=== PATIENT | male | born 1965 | race Caucasian/White ===

== ENCOUNTER → 2017-07-19 09:22 | Outpatient (CLI) | payer BC, SELFPAY ==
--- NOTE | 2017-07-19 09:31 | XR_ITS ---
XR chest 2V COMPARISON: PA and lateral chest 09/06/2012 HISTORY: Is a breath TECHNIQUE: PA and lateral chest FINDINGS: The lung scott are well expanded and appear clear of infiltrate. The cardiac silhouette and vascularity are normal. Is a calcified granuloma right perihilar region. There is no pleural fluid. IMPRESSION: Nonacute chest findings
== END ==
PROVIDERS: PCP Family Medicine; Visit Provider Nurse Practitioner Family
DX: Z12.11 Encounter for screening for malignant neoplasm of colon (principal); R06.02 Shortness of breath
CPT/HCPCS: 71046

== ENCOUNTER → 2017-08-07 15:20 | Outpatient (CLI) | payer BC, SELFPAY | PROVIDERS: PCP Nurse Practitioner Family; Visit Provider Nurse Practitioner Family | DX: G47.10 Hypersomnia, unspecified (principal); R06.83 Snoring | CPT/HCPCS: 95806 ==

== ENCOUNTER → 2017-11-30 15:21 | Outpatient (CLI) | payer BC, SELFPAY ==
--- NOTE | 2017-11-30 15:27 | CT_ITS ---
CT sinus wo con CLINICAL INDICATION: ITS.REASON: NASAL CONGESTION,SEROUS OTITIS OF BOTH EARS ORDERING PHYSICIAN: Malinda Rojo PATIENT AGE: 52 years COMPARISON: None TECHNIQUE:Axial images obtained with sagittal and coronal reformats. All CT scans at the facility use one or more dose reduction, viz: automated exposure control, ma/kV adjustment per patient size (including targeted exams where dose is matched to indication, i.e. head), or iterative reconstruction technique. FINDINGS: There is mild mucosal thickening of the frontal sinuses. Mild to moderate mucosal thickening involves the ethmoid sinuses bilaterally. Minimal mucosal thickening involves the maxillary sinuses. No sinus air-fluid level. There is mild leftward nasal septal deviation. There is narrowing of the right OMC. The left OMC appears occluded from mucous or edema. No obvious sinus or nasal mass. No mastoid effusion. Middle ear canals are well aerated. No evidence of mastoiditis. Scattered small nodes are present in the neck. The orbits have an unremarkable appearance as do the temporomandibular joints IMPRESSION: 1. Mild paranasal sinus inflammatory changes with mild leftward nasal septal deviation. 2. No sinus air-fluid level or other significant anomalies
== END ==
PROVIDERS: Family Provider Family Medicine; PCP Nurse Practitioner Family; Visit Provider Nurse Practitioner Family
DX: J34.89 Other specified disorders of nose and nasal sinuses (principal); H65.06 Acute serous otitis media, recurrent, bilateral
CPT/HCPCS: 70486

== ENCOUNTER → 2018-09-05 13:27 | Outpatient (CLI) | payer BC, SELFPAY ==
--- NOTE | 2018-09-05 13:33 | XR_ITS ---
XR foot LT min 3V HISTORY: ITS.REASON: BILAT FOOT PAIN ORDERING PHYSICIAN: Malinda Rojo APRN PATIENT AGE: 53 years COMPARISON: None FINDINGS: No fracture or dislocation. No lytic or blastic change. There is normal mineralization.. The joint spaces are well-preserved. No significant degenerative/arthritic changes. No erosive changes evident. Mild hammertoe deformity of the toes. There is some mild hypertrophic change of the anterior distal tibia IMPRESSION: Mild hammertoe deformity otherwise negative
--- NOTE | 2018-09-05 13:33 | XR_ITS ---
XR foot RT min 3V HISTORY: ITS.REASON: BILAT FOOT PAIN ORDERING PHYSICIAN: Malinda Rojo APRN PATIENT AGE: 53 years COMPARISON: None FINDINGS: No fracture or dislocation. No lytic or blastic change or significant degenerative change. Mild hammertoe deformity involves all toes. IMPRESSION: Hammertoe deformity of the toes otherwise negative
== END ==
PROVIDERS: PCP Family Medicine; Visit Provider Nurse Practitioner Family
DX: M79.672 Pain in left foot (principal); M79.671 Pain in right foot
CPT/HCPCS: 73630

== ENCOUNTER → 2019-04-07 12:37 | Outpatient (CLI) | payer BC, SELFPAY ==
--- NOTE | 2019-04-07 13:00 | US_ITS ---
PROCEDURE: US THYROID CLINICAL INDICATION: LOW TSH LEVEL COMPARISON: No exams were available for comparison FINDINGS: Right lobe: 1.4 x 5.5 x 2.0 centimeters. Left lobe: 2.1 x 5.4 x 2.1 centimeters. Isthmus: AP diameter 7.9 millimeters. Additional findings: The overall echogenicity of the thyroid gland is homogeneous. There are multiple thyroid nodules, 1 of which at the lower pole left lobe has a peripheral calcification with acoustic shadowing and this measures approximately 6.3 x 6.0 millimeters. There are bilateral hypoechoic spongiform nodules in the left and right thyroid lobe. Largest occurs in the lower pole left thyroid lobe and measures 9.1 x 8.8 millimeters in AP and transverse diameter on the transverse image. IMPRESSION: Multinodular thyroid gland. The small left thyroid lobe nodule contains peripheral calcification and therefore since larger than 0.5 centimeters, tissue sampling could be considered. TR category 5. Multiple hypoechoic spongiform thyroid nodules again more prominent in the left thyroid lobe although transverse image shows the lesion is less than 10 millimeters and this could be followed with repeat ultrasound at 6-12 months. TR category 4. Dictated by: Андрей Saleem 04/07/2019 14:44 Electronically signed by Андрей Saleem in [place] 04/07/2019 14:44
== END ==
PROVIDERS: PCP Family Medicine; Visit Provider Nurse Practitioner Family
DX: R79.89 Other specified abnormal findings of blood chemistry (principal)
CPT/HCPCS: 76536

== ENCOUNTER → 2019-04-23 16:33 | Outpatient (CLI) | payer BC, SELFPAY ==
[2019-04-23 21:17] LABS: Free T4 (Free Thyroxine) 1.12 ng/dl (0.76-1.46); Thyroid Stimulating Hormone 0.43 uIU/ml (0.358-3.740)
[2019-04-25 19:03] LABS: Thyroid Peroxidase Antibodies 9 IU/mL (0-34); Thyroid Stimulating Immunoglob <0.10 IU/L (0.00-0.55)
[2019-04-25 19:04] LABS: Calcium, Ionized 5.3 mg/dL (4.5-5.6)
[2019-04-27 17:56] LABS: Calcitonin 3.1 pg/mL (0.0-8.4)
== END ==
PROVIDERS: Visit Provider Otolaryngology
DX: E04.1 Nontoxic single thyroid nodule (principal)
CPT/HCPCS: 36415; 82308; 82330; 84439; 84443; 84445; 86376

== ENCOUNTER → 2020-10-15 15:04 | Outpatient (CLI) | payer BC, SELFPAY | PROVIDERS: PCP Family Medicine; Visit Provider Nurse Practitioner Family | DX: Z20.822 Contact with and (suspected) exposure to COVID-19 (principal) | CPT/HCPCS: U0003 ==

== ENCOUNTER → 2020-11-10 14:14 | Outpatient (CLI) | payer BC, SELFPAY ==
[2020-11-17 15:12] LABS: Testosterone, Total, LC/MS 202.6 ng/dL (264.0-916.0); Testosterone,Free 4.9 pg/mL (7.2-24.0)
== END ==
PROVIDERS: Visit Provider Urology
DX: N52.9 Male erectile dysfunction, unspecified (principal)
CPT/HCPCS: 36415; 84402; 84403

== ENCOUNTER → 2021-04-14 11:25 | Outpatient (CLI) | payer BC, SELFPAY ==
--- NOTE | 2021-04-15 11:28 | PC.NURSE ---
Patient contacted head of housekeeping for his COVID results. informed patient of positive result and advised to come to the ER if symptoms worsened.
== END ==
PROVIDERS: Visit Provider Nurse Practitioner
DX: U07.1 COVID-19 (principal)
CPT/HCPCS: C9803; U0003; U0005

== ENCOUNTER → 2021-07-15 07:09 | Outpatient (CLI) | payer BC, SELFPAY ==
--- NOTE | 2021-07-15 07:14 | CT_ITS ---
FINAL REPORT CLINICAL HISTORY: H/O NICOTINE DEPENDENCE FINDINGS: Low-Dose Chest CT CTDI vol (mGy): 2.90 DLP (mGy-cm): 115.16 Axial images were obtained from the lung apex to the mid abdomen by computed tomography. Low-dose protocol was utilized. FINDINGS: CHEST: There is no axillary adenopathy. There is no hilar or mediastinal adenopathy. The heart is proper size. There are mild coronary artery calcifications. There is no pericardial or pleural effusion. Limited images of the upper abdomen demonstrate postoperative changes from cholecystectomy. Lung window images demonstrate calcified granulomas in the right upper lobe. There are ground-glass nodules in the left lung apex measuring up to 10 mm. IMPRESSION: Ground-glass nodules in the left lung apex measuring up to 10 mm. Lung RADS category 2. Recommend 12 month follow-up low-dose chest CT. Reviewed, Interpreted and Dictated by Gunnar Mcclellan III, MD Transcribed by Sujey Castro Authenticated by Gunnar Mcclellan III, MD on 07/15/2021 08:49:53 AM [facility]
== END ==
PROVIDERS: PCP Family Medicine; Visit Provider Nurse Practitioner Family
DX: Z87.891 Personal history of nicotine dependence (principal); Z12.2 Encounter for screening for malignant neoplasm of respiratory organs
CPT/HCPCS: 71271

== ENCOUNTER → 2021-07-18 15:07 | Outpatient (CLI) | payer BC, SELFPAY ==
[2021-07-18 15:19] LABS: MANUAL DIFFERENTIAL MANUAL DIFFERENTIAL (MANUAL DIFF)
[2021-07-18 16:11] LABS: Basophils # 0.1 K/mm3 (0-0.2); Basophils % 0.7 % (0.1-2.0); Eosinophils # 0.2 K/mm3 (0.0-0.4); Eosinophils % 1.7 % (0.1-12.0); Hematocrit 47.4 % (42.0-52.0); Hemoglobin 15.5 g/dL (14.1-18.0); Lymphocytes # 2.5 K/mm3 (0.7-4.5); Lymphocytes % 23.9 % (10-50); Mean Corpuscular HGB Conc 32.8 g/dL (31.8-35.4); Mean Corpuscular Hemoglobin 30.1 pg (27.0-31.2); Mean Platelet Volume 8.6 fl (7.4-10.4); Monocytes # 0.7 K/mm3 (0.1-1.0); Neutrophils % 66.6 % (37.0-80.0); Platelet Count 293 K/mm3 (142-424); Red Blood Count 5.15 M/mm3 (4.60-6.20); Red Cell Distribution Width 14.5 % (11.5-17.5); White Blood Count 10.5 K/mm3 (4.8-10.8)
[2021-07-18 16:50] LABS: Alanine Aminotransferase 36 U/L (12-78); Albumin Level 4.5 g/dl (3.5-5.0); Alkaline Phosphatase 79 U/L (38-126); Aspartate Amino Transferase 32 U/L (17-59); Bilirubin,Direct 0.2 mg/dl (0.0-0.4); Bilirubin,Indirect 0.4 mg/dL (0.0-0.9); Bilirubin,Total 0.6 mg/dl (0.2-1.3); Bilirubin,Unconjugated 0.4 mg/dL (0.0-1.1); Total Protein,Serum 6.8 g/dl (6.3-8.2)
[2021-07-18 18:25] LABS: Eosinophils % 2 % (0-3); Lymphocytes % 28 % (10-50); Monocytes % 5 % (2-9); Neutrophils % 65 % (42-76); Platelet Estimate Normal; RBC Morphology Normal; Total Cells Counted 100
[2021-08-01 18:09] LABS: Testosterone, Total, LC/MS 224.9 ng/dL (264.0-916.0); Testosterone,Free 8.8 pg/mL (7.2-24.0)
== END ==
PROVIDERS: PCP Family Medicine; Visit Provider Urology
DX: E29.1 Testicular hypofunction (principal)
CPT/HCPCS: 36415; 80076; 84402; 84403; 85007; 85014; 85018; 85048; 85049; G0399

== ENCOUNTER → 2021-09-29 13:38 | Outpatient (CLI) | payer BC, SELFPAY ==
--- NOTE | 2021-09-29 13:38 | US_ITS ---
FINAL REPORT CLINICAL HISTORY: thyroid nodule COMPARISON: April 07, 2019 FINDINGS: THYROID ULTRASOUND Sonographic images of the thyroid was obtained. The right lobe of the thyroid measures 5.1 x 2.3 x 1.6 cm. There is a nodule measuring 16 x 12 x 10 mm and was 12 x 8 x 8 mm. It is cystic and solid, TI-RADS 2. The left lobe of the thyroid measures 6.1 x 2.3 x 2.2 cm. There is a nodule measuring 20 x 17 x 17 mm and was 18 x 10 x 9 mm. It now appears more cystic, TI-RADS 2. The isthmus measures 8 mm. There is a nodule on the right measuring 8 x 8 x 3 mm and was 9 x 8 x 6 mm. It is solid and hypoechoic, TI-RADS 4. There is a nodule on the left measuring 19 x 14 x 12 and was 9 x 9 x 6. It is largely cystic, TI-RADS 2. IMPRESSION: Nodules as above, some are somewhat larger but now appear more cystic and still favored to be benign. Recommend additional follow-up ultrasound in 6 months. Reviewed, Interpreted and Dictated by Gunnar Mcclellan III, MD Transcribed by Sujey Casrto Authenticated and [facility]
[2021-09-29 15:43] LABS: Free T4 (Free Thyroxine) 0.97 ng/dl (0.78-2.19)
== END ==
PROVIDERS: PCP Family Medicine; Visit Provider Otolaryngology
DX: E04.1 Nontoxic single thyroid nodule (principal)
CPT/HCPCS: 36415; 76536; 84439; 84443

== ENCOUNTER → 2022-03-15 15:45 | Outpatient (CLI) | payer BC, SELFPAY ==
[2022-03-15 17:53] LABS: Coronavirus 19, PCR Not Detected (NotDetected); Influenza A, PCR Not Detected (NotDetected); Influenza B, PCR Not Detected (NotDetected)
== END ==
PROVIDERS: PCP Emergency Medicine; Visit Provider Emergency Medicine
DX: R68.89 Other general symptoms and signs (principal)
CPT/HCPCS: C9803; U0003; U0005

== ENCOUNTER → 2022-04-07 13:25 | Outpatient (CLI) | payer BC, SELFPAY ==
--- NOTE | 2022-04-07 13:25 | US_ITS ---
FINAL REPORT CLINICAL HISTORY: 6 mo f/u nodule COMPARISON: 09/29/2021 FINDINGS: Limited sonographic images of the thyroid were obtained. The right lobe of the thyroid measures 5.3 x 1.5 x 2.1 cm. The left lobe of the thyroid measures 5.6 x 3.3 x 2.5 cm. The isthmus measures 0.55 cm. There is a nodule in the right isthmus which is solid and isoechoic measuring 8 x 8 x 6 mm consistent with TI-RADS category 3. This nodule is stable compared to previous. There is also a nodule in the left isthmus which is solid and hypoechoic measuring 8 x 6 x 5 mm. This nodule has decreased in size, previously measured 19 x 14 x 12 mm. This nodule is consistent with TI-RADS category 4. There is an isoechoic nodule in the right lobe of the thyroid which is a mixture of cystic and solid measuring 15 x 15 x 10 mm. This nodule is stable consistent with TI-RADS category 2. There is also a nodule in the left thyroid lobe which is cystic and solid with macro calcifications measuring 19 x 19 x 19 mm, previously measured 12 x 17 x 17 mm. This is not significantly changed. IMPRESSION: Multiple thyroid nodules are stable with the exception of the nodule in the left isthmus which has decreased in size. Reviewed, Interpreted and Dictated by Gunnar Mcclellan III, MD Transcribed by Meron Walker Authenticated and [facility] [place] [place]
== END ==
PROVIDERS: PCP Emergency Medicine; Visit Provider Otolaryngology
DX: E04.1 Nontoxic single thyroid nodule (principal)
CPT/HCPCS: 76536

== ENCOUNTER → 2022-06-06 12:18 | Outpatient (CLI) | payer BC, SELFPAY ==
[2022-06-06 13:57] LABS: Free T4 (Free Thyroxine) 0.96 ng/dl (0.78-2.19)
== END ==
PROVIDERS: PCP Emergency Medicine; Visit Provider Otolaryngology
DX: E04.1 Nontoxic single thyroid nodule (principal)
CPT/HCPCS: 36415; 84439; 84443

== ENCOUNTER → 2022-10-16 18:36 | Outpatient (CLI) | payer BC, SELFPAY | PROVIDERS: PCP Family Medicine; Visit Provider Internal Medicine | DX: R19.7 Diarrhea, unspecified (principal) | CPT/HCPCS: 87045; 87177; 87205 ==

== ENCOUNTER 2023-05-23 10:14 | Outpatient (CLI) | payer BC, SELFPAY ==
--- NOTE | 2023-05-23 10:19 | US_ITS ---
FINAL REPORT CLINICAL HISTORY: THYROID NODULE COMPARISON: 04/07/2022 FINDINGS: THYROID ULTRASOUND: The right lobe of the liver measures 5.6 x 1.4 x 2.2 cm in size, and the left lobe of the liver measures 5.4 x 2 x 1.8 cm in size. The isthmus measures 6 mm in thickness. The thyroid gland is enlarged, and of heterogeneous echotexture with multiple nodules. There is a 13 x 9 x 9 mm nodule in the right lobe of the liver, spongiform, a TI-RADS category 1 nodule, similar in size to the prior ultrasound. A second nodule measures 8 x 7 x 5 mm in size, is cystic, a TI-RADS category 1 nodule, also similar to the prior exam. There is an 11 x 8 x 5 mm cystic and solid nodule in the left lobe of the thyroid, isoechoic, a TI-RADS category 2 nodule, stable. There is a 10 x 7 x 6 mm solid isoechoic nodule, a TI-RADS category 3 nodule, also stable. There is a 17 x 12 x 10 mm cystic and solid nodule, isoechoic, a TI-RADS category 2 nodule, somewhat smaller than noted on the prior ultrasound examination. No new nodules are identified since the prior exam. IMPRESSION: Multiple thyroid nodules as described, mostly similar in size to the prior exam of March 2022. No new nodules are identified. Recommend 12-month follow-up thyroid ultrasound for further evaluation. Reviewed, Interpreted and Dictated by Gunnar Mcclellan III, MD Transcribed by Nara Melchor Authenticated and [facility]
--- NOTE | 2023-05-23 10:19 | CT_ITS ---
FINAL REPORT TECHNIQUE: Axial CT images of the chest were obtained without contrast. Low-dose protocol was utilized. This study was performed with techniques to keep radiation doses as low as reasonably achievable (ALARA). Individualized dose reduction techniques using automated exposure control or adjustment of mA and/or kV according to the patient's size were employed. CLINICAL HISTORY: H/O TOBACCO USE FORMER SMOKER QUIT 7 YEARS AGO 1PPD X36 YEARS WHEN SMOKIING COMPARISON: 07/15/2021 FINDINGS: CT CHEST WITHOUT, LOW DOSE SCREENING CT Di Vol: 2.90 mGy DLP: 113.07 mGy*cm There is no mediastinal or hilar mass. There are mild coronary artery calcifications. The heart size is normal. There is no pleural or pericardial effusion. The lung windows show groundglass nodules in the medial left upper lobe, medial nodule measures 12 mm and lateral nodule measures 9 mm. These are larger since a prior exam. There are several calcified granulomas. Limited images of the upper abdomen demonstrate mild fatty infiltration of the liver. Postcholecystectomy. IMPRESSION: Left upper lobe groundglass nodules increased in size since prior. LR Category 2: 12 month follow-up low-dose chest CT is recommended. Reviewed, Interpreted and Dictated by Gunnar Mcclellan III, MD Transcribed by Naaznin Pandey Authenticated and [facility]
== END 2023-05-23 23:59 ==
LOC: RAD 10:15
PROVIDERS: PCP Family Medicine; Visit Provider Family Medicine
DX: E04.1 Nontoxic single thyroid nodule (principal); Z87.891 Personal history of nicotine dependence
CPT/HCPCS: 71271; 76536

== ENCOUNTER 2023-11-28 10:51 | Outpatient (CLI) | payer BC, SELFPAY ==
--- NOTE | 2023-11-28 10:54 | CA_ITS ---
FINAL REPORT TECHNIQUE: Color Doppler, duplex Doppler and compression sonography of the left lower extremity deep venous systems was performed. CLINICAL HISTORY: PAIN IN LEFT CALF X 1 WEEK,NKI,PT HAD LUNG REMOVED 1 MONTH AGO FINDINGS: There is no evidence of deep venous thrombosis from the level of the groin to the calf. The veins are patent and compressible. IMPRESSION: No evidence of deep venous thrombosis left lower extremity. Reviewed, Interpreted and Dictated by Gunnar Mcclellan III, MD Transcribed by Meron Walker Authenticated and [facility]
== END 2023-11-28 23:59 | disposition home or self-care (01) ==
PROVIDERS: PCP Family Medicine; Visit Provider Family Medicine
DX: M79.605 Pain in left leg (principal); I82.403 Acute embolism and thrombosis of unspecified deep veins of lower extremity, bilateral
CPT/HCPCS: 93971

== ENCOUNTER 2024-05-26 13:17 | Outpatient (CLI) | payer BC, SELFPAY ==
--- NOTE | 2024-05-26 13:17 | US_ITS ---
FINAL REPORT TECHNIQUE: Sonographic images of the thyroid were obtained. CLINICAL HISTORY: 1 year repeat exam COMPARISON: 05/23/2023 and 04/07/2022 FINDINGS: THYROID ULTRASOUND SIZE: The right lobe measures 5.6 x 1.5 x 2.3 cm. The left lobe measures 5.6 x 2.1 x 2.3 cm. ECHOGENICITY: Homogeneous LESIONS: There is a 15 mm mixed cystic and solid nodule in the right lobe classified as a TR 3 nodule, previously 13 mm. There is an isoechoic solid TR 3 nodule in the right lobe measuring up to 9 mm that was not evident on the prior exam. In the left lobe, there are a few scattered nodules. The largest is a mixed cystic and solid isoechoic nodule measuring 15 x 6 mm, previously 11 x 5 mm. There is a second left thyroid nodule that is isoechoic in appearance and measuring 13 mm, previously 11 mm. IMPRESSION: Multiple nodules as above with minimal interval enlargement, all classified as TR 3, favor benign. RECOMMENDATIONS: Continue 12-month follow-up per TI-RADS criteria. Reviewed, Interpreted and Dictated by Barbara Gutierrez MD Transcribed by Coty Gerber Authenticated and [facility]
== END 2024-05-26 23:59 | disposition home or self-care (01) ==
LOC: RAD 13:17
PROVIDERS: PCP Family Medicine; Visit Provider Nurse Practitioner
DX: E04.1 Nontoxic single thyroid nodule (principal)
CPT/HCPCS: 76536

== ENCOUNTER 2024-06-09 13:20 | Outpatient (CLI) | payer BC, SELFPAY ==
[2024-06-09 13:41] LABS: Basophils # 0.1 K/mm3 (0-0.2); Basophils % 0.7 % (0.1-2.0); Eosinophils # 0.2 K/mm3 (0.0-0.4); Hemoglobin 17.9 g/dL (14.1-18.0); Lymphocytes # 2.3 K/mm3 (0.7-4.5); Lymphocytes % 19.3 % (10-50); Mean Corpuscular HGB Conc 34.4 g/dL (31.8-35.4); Mean Corpuscular Hemoglobin 30.2 pg (27.0-31.2); Mean Corpuscular Volume 87.8 fl (80-94); Monocytes # 0.9 K/mm3 (0.1-1.0); Monocytes % 7.9 % (1.7-9.3); Neutrophils # 8.2 K/mm3 (1.8-7.8); Neutrophils % 69.7 % (37.0-80.0); Platelet Count 278 K/mm3 (142-424); Red Blood Count 5.92 M/mm3 (4.60-6.20); Red Cell Distribution Width 14.2 % (11.5-17.5); White Blood Count 11.8 K/mm3 (4.8-10.8)
[2024-06-09 14:07] LABS: Blood Urea Nitrogen 18 mg/dl (9-20); Estimated Glomerular Filt Rate 69 ml/min (>60); GFR (African American) 83 ML/MIN (>60)
[2024-06-09 14:39] LABS: Prostate Specific Ag Screen 1.8 ng/ml (0.0-4.0)
[2024-06-10 11:24] LABS: Sex Hormone Binding Globulin 22.7 nmol/L (19.3-76.4)
[2024-06-10 12:21] LABS: Testosterone,Total 478 ng/dL (264-916)
== END 2024-06-09 23:59 | disposition home or self-care (01) ==
LOC: LAB 13:21
PROVIDERS: PCP Family Medicine; Visit Provider Urology
DX: N52.9 Male erectile dysfunction, unspecified (principal); N40.0 Benign prostatic hyperplasia without lower urinary tract symptoms
CPT/HCPCS: 36415; 82565; 82670; 84270; 84403; 84520; 85025; G0103

== ENCOUNTER 2025-03-10 08:53 | Outpatient (CLI) | payer BC, SELFPAY ==
--- OUTSIDE RECORDS SUMMARY | 2025-01-15 09:19 | XMS_ITS | Encounter Summary ---
Author Organization [facility] Address [address] [place] [address] Care Team Providers Care Typesetter Perforator Operator Name Role Phone Xiang Chong MD Primary Care Provider [phone] Reason for Referral * Medical Care (Routine) - Closed Specialty Diagnoses / Procedures Referred By Contac t Referred To Contact Sleep Medicine Diagnoses JAMARI (obstructive sleep apnea) Procedures Home Sleep Study Rachel Avalos APRN [address] [place] [address] Phone: tel: fax: [address] [address] Phone: tel: Referral ID Status Reason Start Date Expiration Date Visits Re quested Visits Authorized [id number] Closed 01/01/2025 03/02/2025 1 1 Reason for Visit * Medical Care (Routine) - Closed Specialty Diagnoses / Procedures Referred By Contac t Referred To Contact Sleep Medicine Diagnoses JAMARI (obstructive sleep apnea) Procedures Home Sleep Study Rachel Avalos APRN [address] [place] [address] Phone: tel: fax: [facility] [address] [place] [phone] Phone: tel: Referral ID Status Reason Start Date Expiration Date Visits Re quested Visits Authorized [id number] Closed 01/01/2025 03/02/2025 1 1 Encounter Details Date Type Department Care Team (Late st Contact Info) Description 01/15/2025 10:19 AM EDT Hospital Encounter [facility] [address] [place] [address] Rachel Avalos, [facility] [address] [place] [address] JAMARI Social History Tobacco Use Types Packs/Day Years Used Date Smoking Tobacco: Former Cigarettes 1 36 0 04/16/1980 - 2016 Passive Smoke Exposure: Past Smokeless Tobacco: Former Snuff Quit: 2003 Comments:Only Occasional use when unable to smoke Alcohol Use Standard Drinks/Week Comments Yes 1 (1 standard drink = 0.6 oz pur e alcohol) AUDIT-C Answer Date Recorded Q1: How often do you have a drink containing alc ohol? 2-3 times a week 10/25/2023 Q2: How many drinks containi ng alcohol do you have on a typical day when you are drinking? 1 or 2 10/25/2023 Q3: How often do you have si x or more drinks on one occasion? Less than monthly 10/25/2023 Abuse Screen Answer Date Recorded Feels Unsafe at Home or Work/School no 10/25/2023 Feels Threatened by Someone no 10/14 Does Anyone Try to Keep You From Having Contact with Others or Doing Things Outside Your Home? no 10/25/2023 Physical Signs of Abuse Present no 10/25/2023 Housing Stability Answer Date Recorded Current Living Arrangements home 10/14 Potentially Unsafe Housing Conditions Not on camilo e 10/26/2023 Disabilities Answer Date Recorded Difficulty Concentrating, Remembering or Making Decisions no 10/25/2023 Difficulty Managing Errands Independently no 10/25/2023 Education Answer Date Recorded Help with school or training? Not on file Preferred Language Burmese 10/24/2023 PHQ-2 Answer Date Recorded Patient Health Questionnaire-2 Score 0 06/16/2024 Sex and Gender Information Value Date Recorded Sex Assigned at Not on file Legal Sex Male 10:43 AM EDT Gender Identity Not on file Sexual Orientation Not on file Occupation Industry Job Start Date Job End Date [employer] Not on file Not on file Not on file documented as of this encounter Last Filed Vital Signs Vital Sign Reading Time Taken Comments Blood Pressure - - Pulse - - Temperature - - Respiratory Rate - - Oxygen Saturation - - Inhaled Oxygen Concentration - - Weight 114 kg (251 lb 5.2 oz) 01/15/2025 10:32 A M EDT Height 191.8 cm (6' 3.51 ) 01/15/2025 10:32 AM E DT Body Mass Index 30.99 01/15/2025 10:32 AM EDT documented in this encounter Plan of Treatment Upcoming Encounters Date Type Department Care Team (Late st Contact Info) Description 04/02/2025 11:30 AM EST Office Visit [facility] PULMONARY & CRITICAL CARE MEDICINE [address] [place] [address] [address] [place] [address] 04/02/2025 12:00 PM EST Office Visit [facility] PULMONARY & CRITICAL CARE MEDICINE [address] [place] [address] [address] [place] [address] Shun Rhodes MD [address] [phone] 07/09/2025 10:30 AM EDT Appointment [facility] AT [address] [phone] 07/16/2025 10:15 AM EDT Office Visit [facility] HEMATOLOGY & ONCOLOGY [address] [facility] [address] [place] [address] Rene De Leon MD [address] [facility] [address] [place] [address] documented as of this encounter Procedures Procedure Name Priority Date/Time Associated Diagnosis Comments WATCHPAT Routine 01/16/2025 7:35 AM EDT JAMARI documented in this encounter Results * WATCHPAT (01/16/2025 7:35 AM EDT) Impressions SLEEP MEDICINE - 01/23/2025 1:26 PM EDT 1. Severe obstructive sleep apnea. 2. Nocturnal hypoxemia (10.1% time below 90% O2 sat) 3. Snoring. RECOMMENDATIONS: 1. Available data is suggestive of severe obstructive sleep apnea along with sleep hypoxia. Consider auto CPAP trial 4 to 20 cm of water pressure and CPAP download on therapy to make sure we are not missing any other pathology and to determine the adequacy of the pressure settings. 2. Discuss good sleep hygiene habits, including but not limited to fixed wake up and sleep time, avoid alcohol 4 hours before sleep and not driving while drowsy. Maintain ideal body weight. I have conducted an epoch by epoch review of the raw data and agree with the interpretation. Electronically signed by: Lee Grant MD 01/23/25 13:25 EDT Narrative SLEEP MEDICINE - 01/23/2025 1:26 PM EDT Table formatting from the original result was not included. WatchPAT study report Patient Name: Dwight Pina Interpreting Physician: Lee Grant MD Date of : 1965 Referring Physician: Rachel Avalos APRN Primary Care Physician: Xiang Chong MD Date of Study: 01/15/25 Clinical Information Patient is a 59 y.o. male. Height: 191.8 cm (75.51 ) Weight: 114 kg (251 lb 5.2 oz) BMI (Calculated): 31 Methods used for Home Sleep Testing: Patient had a home sleep test using an WatchPat device that uses peripheral arterial tone to measure arterial volume changes at the fingertip showing sympathetic nervous system activation. Sleep stages are determined based on signal characteristics and built in actigraphy can help determine sleep/wake periods. Both signal attenuation and pulse rate determine arousals correlating with respiratory events, and the pulse oximeter sensor determines blood oxygen saturations. Snoring and body position is determined through an intergrated sensor measuring decibals and actigraphy. Hypopneas were scored according to AASM definition 1B (4% desaturation). Tech Summary: Total recording time was 8 hrs, 36 min and total sleep time (TST) was 7 hrs, 44 min. Sleep efficiency was 89.9%. The Apnea-Hypopnea Index (AHI 4%) was 51.7 and of this, the central AHI (AHIc 4%) was 6.9. The SpO2 lis was 78% and time spent with SpO2 < 88% was 29.0 minutes. The average pulse rate was 57. (01/16/25 1308 : Curtis Sim, [facility]) Polysomnography Results Diagnostic Summary TOTAL RECORDING TIME: 8 hours and 36 minutes TOTAL SLEEP TIME: 7 hours and 44 minutes STAGE R % TST 19.9 Respiratory Data pAHI: 4% 51.7 pRDI: 53.9 pAHIc: 6.9 Cardiac AVG HR DURING SLEEP 57 HIGHEST HR DURING SLEEP 93 Oximetry MIN SPO2 78 O2 SATURATION, MEAN VALUE 93 Time below 90% O2 sat: 47 min Diagnostic Respiratory Index Summary by Body Position Supine AHI: 54.4; Non supine AHI: 48.8 Rachel Avalos [facility] ORDERABLES Final Result SLEEP MEDICINE documented in this encounter Visit Diagnoses Diagnosis JAMARI Obstructive sleep apnea (adult) (pediatric) documented in this encounter Care Teams Typesetter Perforator Operator Relationship Specialty Start Date End Date Xiang Chong MD [address] [place] [address] PCP - General Family Medicine 07/02/23 documented as of this encounter
--- OUTSIDE RECORDS SUMMARY | 2025-03-10 08:56 | XMS_ITS | Clinical Summary ---
Author Organization [facility] Address [address] [place] [address] Phone [email or web address] Media Care Team Providers Care Manager Quality Systems Name Role Phone Gemma Horton Primary Care Provider [phone] Allergies Active Allergy Reactions Criticality Noted Date Comments Amoxicillin 12/13/2017 Medications DEXILANT 60 MG capsuleIndicatio ns:40 mg per TM ? 40 mg. 11/12/2017 Active acetaminophen (TYLENOL) 325 MG tablet Take by mouth every 6 (six) hours if needed for mild pain. Active losartan (COZAAR) 50 MG tablet 04/24/2018 Active Active Problems Problem Noted Date Diagnosed Date Strain of tendon of foot and ankle, initial enco unter 12/23/2018 Plantar fasciitis, bilateral 12/23/2018 Inguinal hernia, left 01/02/2018 Overview (01/02/2018): -small fat containing iguinal hernia by CT scan Pain of left hip joint 01/02/2018 Other malaise and fatigue 09/08/2011 Overview (09/12/2017): Enthesopathy of hip region 12/16/2009 Overview (09/12/2017): Routine general medical exam ination at a health care facility 09/01/2009 Overview (09/12/2017): Examination for medicolegal reason 06/22/2008 Overview (09/12/2017): Tobacco use disorder 08/27/2007 Overview (09/12/2017): Other examination of ears and hearing 08/12/2007 Overview (09/12/2017): Resolved Problems Problem Noted Date Diagnosed Date Resolved Date Acute sinusitis 01/25/2009 01/02/2018 Overview (09/12/2017): Acute nonsuppurative otitis media 06/19/2008 01/02/2018 Overview (09/12/2017): Other acute sinusitis 06/19/20082017 Overview (09/12/2017): Other orchitis, epididymitis , and epididymo-orchitis 08/27/2007 05/27/2018 Overview (09/12/2017): Immunizations Immunization Administration Dates Next Due Tdap (ADACEL BOOSTRIX) (CVX-115) 05/11/2011 Social History Tobacco Use Types Packs/Day Years Used Date Smoking Tobacco: Never Smokeless Tobacco: Never Intimate Partner Violence Answer Date R ecorded Insults You Not on file 07/27/2020 Threatens You Not on file 07/27/2020 Screams at You Not on file 07/27/2020 Physically Hurt Not on file 07/27/2020 Intimate Partner Violence Score Not on file 07/27/2020 Stress Answer Date Recorded Stress in your Life Not on file 02/18/2024 Dealing with Stress 3 02/18/2024 Sex and Gender Information Value Date Recorded Sex Assigned at Not on file Legal Sex Male 7:28 AM CDT Gender Identity Not on file Sexual Orientation Not on file Last Filed Vital Signs Vital Sign Reading Time Taken Comments Blood Pressure 116/75 12/31/2018 4:09 PM EDT Pulse 62 12/31/2018 4:09 PM EDT Temperature 36.8 C (98.2 F) 04/05/2018 8:08 AM EST Respiratory Rate 16 12/31/2018 4:09 PM EDT Oxygen Saturation 97% 12/31/2018 4:09 PM EDT Inhaled Oxygen Concentration - - Weight 109 kg (240 lb) 12/23/2018 8:07 AM EDT Height 185.4 cm (6' 1 ) 12/23/2018 8:07 AM EDT Body Mass Index 31.66 12/23/2018 8:07 AM EDT Plan of Treatment Health Maintenance Due Date Last Done Comments CT Colonography 1965 Colonoscopy 1965 Colorectal Cancer Screening Combo 1965 DNA Cologuard 1965 Dental Cleaning/Exam 1965 FIT or FOBT Test 1965 HIV Screening 1965 Hepatitis C Screening 1965 Sigmoidoscopy 1965 Annual Preventive Exam 08/29/1983 Hep B Infection Screening - Triple Screen 08/29/1983 Hepatitis B Immunization (1 of 3 - 19+ 3-dose series) 1984 Pneumococcal: 50+ Years (1 o f 1 - PCV) 08/29/2015 Zoster Immunization (1 of 2) 08/29/2015 Tetanus Diphtheria and Pertu ssis Immunization (2 - Td or Tdap) 05/11/2021 05/11/2011 Covid-19 Immunization (1 - 2 ) 12/15/2024 Influenza Immunization (#1) 2024 HIB Immunization Aged Out No longer e ligible based on patient's age to complete this topic HPV Immunization Aged Out No longer e ligible based on patient's age to complete this topic Hepatitis A Immunization Aged Out No longer eligible based on patient's age to complete this topic Polio Immunization Aged Out No longer eligible based on patient's age to complete this topic Care Teams Manager Quality Systems Relationship Specialty Start Date End Date Gemma Horton [address] [id number] PCP - General Internal Medicine 12/23/18
--- OUTSIDE RECORDS SUMMARY | 2025-03-10 08:56 | XMS_ITS | Encounter Summary ---
Author Organization [facility] Address [address] [place] [address] Care Team Providers Care Acetylene Plant Operator Name Role Phone Xiang Chong MD Primary Care Provider [phone] Encounter Details Date Type Department Care Team (Latest Contact Info) Description 01/15/2025 Travel Social History Tobacco Use Types Packs/Day Years [...] or training? Not on file Preferred Language Bolivian 10/24/2023 PHQ-2 Answer Date Recorded Patient Health Questionnaire-2 Score 0 06/16/2024 Sex and Gender Information Value Date Recorded Sex Assigned at Not on file Legal Sex Male 10:43 AM EDT Gender Identity Not on file Sexual Orientation Not on file Occupation Industry Job Start Date Job End Date [employer] Not on file Not on file Not on file documented as of this encounter Plan of Treatment Upcoming Encounters Date Type Department Care Team (Late st Contact Info) Description 04/02/2025 11:30 AM EST Office Visit [facility] PULMONARY & CRITICAL CARE MEDICINE [address] [facility] [address] [place] [address] 04/02/2025 12:00 PM EST Office Visit [facility] PULMONARY & CRITICAL CARE MEDICINE [address] [facility] [address] [place] [address] Shun Rhodes MD [address] [place] [address] 07/09/2025 10:30 AM EDT Appointment [facility] AT [address] [phone] 07/16/2025 10:15 AM EDT Office Visit [facility] HEMATOLOGY & ONCOLOGY [address] [facility] [address] [place] [address] Rene De Leon MD [address] [facility] [address] [place] [address] documented as of this encounter Visit Diagnoses Not on filedocumented in this encounter Care Teams Acetylene Plant Operator Relationship Specialty Start Date End Date Xiang Chong MD [address] [place] [address] PCP - General Family Medicine 07/02/23 documented as of this encounter
--- OUTSIDE RECORDS SUMMARY | 2025-03-10 08:56 | XMS_ITS | Clinical Summary ---
Author Organization [facility] Address [address] [place] [address] Care Team Providers Care Tower Air Traffic Control Specialist Name Role Phone Xiang Chong MD Primary Care Provider [phone] Allergies No known active allergies Medications losartan (COZAAR) 100 MG tablet Take 1 tablet by mouth Daily. Active EQ Omeprazole 20 MG tablet delayed-release Take 20 mg by mouth Daily. 4 Active hydroCHLOROthia zide (MICROZIDE) 12.5 MG capsule Take 1 capsule by mouth Every Morning. 4 Active pantoprazole (PROTONIX) 40 MG EC tablet Take 1 tablet by mouth As Needed. 4 Active phentermine (ADIPEX-P) 37.5 MG tablet Take 1 tablet by mouth Every Morning Before Breakfast. 4 Active tadalafil (CIALIS) 20 MG tablet TAKE 1 TABLET BY MOUTH ONCE DAILY 1 HOUR BEFORE INTERCOURSE 5 Active tadalafil (CIALIS) 5 MG tablet Take 1 tablet by mouth Daily. 5 Active albuterol sulfate HFA 108 (90 Base) MCG/ACT inhalerIndicati ons:Shortness of breath Inhale 2 puffs Every 4 (Four) Hours As Needed for Wheezing. 18 g 11 5 Active Active Problems Problem Noted Date Diagnosed Date Biceps tendinitis of left upper extremity 2023 S/P thoracotomy 12/25/2023 Strain of left trapezius muscle 12/25/2023 Scapular dyskinesis 12/25/2023 Left shoulder pain 12/25/2023 GERD (gastroesophageal reflux disease) HTN (hypertension) 10/25/2023 Primary adenocarcinoma of upper lobe of left myrna g 10/04/2023 Cancer Staging:Clinical stage from 10/04/2023:Stage 0(cTis, cN0, cM0) - Signed by Rene De Leon MD on 10/04/2023 Pathologic stage from 10/24/2023:Stage IA2(pT1b, pN0, cM0) - Signed by Rene De Leon MD on 10/29/2023 JAMARI 08/27/2023 Obesity (BMI 30-39.9) 08/27/2023 Former smoker (Quit 2016) 07/17/2023 Resolved Problems Problem Noted Date Diagnosed Date Resolved Date Lung nodule 10/11/2023 01/15/2024 Ground glass opacity JOELLEN 07/17/2023 Encounters Date Type Department Care Team Description 01/15/2025 10:19 AM EDT Hospital Encounter [facility] [address] [place] [address] Rachel Avalos MANAGER MEDICAL JAMARI 01/15/2025 Travel 01/01/2025 10:30 AM EDT Office Visit [facility] PULMONARY & CRITICAL CARE MEDICINE [address] [place] [address] Rachel Avalos, MANAGER MEDICAL Shortness of breath (Primary Dx); JAMARI; S/P thoracotomy; Gastroesophageal reflux disease, unspecified whether esophagitis present; Obesity (BMI 30-39.9); Former smoker (Quit 2016) 01/01/2025 9:30 AM EDT Office Visit [facility] HEMATOLOGY & ONCOLOGY [address] [place] [address] Rene De Leon MD Primary adenocarcinoma of upper lobe of left lung (Primary Dx) 01/01/2025 Travel 12/16/2024 Telephone [facility]AT[facility]COL[facility] [address] [place] [address] Rene De Leon MD Appointment; CT scan results 12/13/2024 8:38 AM EDT - 12/13/2024 11:59 PM EDT Hospital Encounter [facility] [place] [address] [facility] [address] [place] [address] Rene De Leon MD Primary adenocarcinoma of upper lobe of left lung Discharge Disposition: Home or Self Care 12/13/2024 Travel from Last 3 Months Immunizations Immunization Administration Dates Next Due Flu Vaccine Intradermal Quad 18-64YR 07/01/2024( Deferred: Patient Refused) Fluzone (or Fluarix & Flulav al for VFC) >6mos 01/31/2018 Tdap 05/11/2011 Family History Medical History Relation Name Comments Coronary artery disease Father Heart attack Sister Relation Name Status Comments Brother Father Mother Sister Social History Tobacco Use Types Packs/Day Years Used Date Smoking Tobacco: Former Cigarettes 1 36 0 04/16/1980 - 2016 Passive Smoke Exposure: Past Smokeless Tobacco: Former Snuff Quit: 2003 Tobacco Cessation:Counseling Given: Not Answered Comments:Only Occasional use when unable to smoke [...] or training? Not on file Preferred Language [place] Citizen 10/24/2023 PHQ-2 Answer Date Recorded Patient Health Questionnaire-2 Score 0 06/16/2024 Sex and Gender Information Value Date Recorded Sex Assigned at Not on file Legal Sex Male 10:43 AM EDT Gender Identity Not on file Sexual Orientation Not on file Occupation Industry Job Start Date Job End Date [employer] Not on file Not on file Not on file Last Filed Vital Signs Vital Sign Reading Time Taken Comments Blood Pressure 136/80 01/01/2025 10:25 AM EDT Pulse 66 01/01/2025 10:25 AM EDT Temperature 36.5 C (97.7 F) 01/01/2025 10:25 AM EDT Respiratory Rate 16 01/01/2025 9:30 AM EDT Oxygen Saturation 99% 01/01/2025 10: 25 AM EDT Room air at rest Inhaled Oxygen Concentration - - Weight 114 kg (251 lb 5.2 oz) 01/15/2025 10:32 AM EDT Height 191.8 cm (6' 3.51 ) 01/15/2025 1 0:32 AM EDT Body Mass Index 30.99 01/15/2025 10:32 AM EDT Plan of Treatment Upcoming Encounters Date Type Department Care Team (Late st Contact Info) Description 04/02/2025 11:30 AM EST Office Visit [facility] PULMONARY & CRITICAL CARE MEDICINE [address] [facility] [address] [place] [address] 04/02/2025 12:00 PM EST Office Visit [facility] PULMONARY & CRITICAL CARE MEDICINE [address] [facility] [address] [place] [address] Shun Rhodes MD [address] [place] [phone] 07/09/2025 10:30 AM EDT Appointment [facility] AT [address] [phone] 07/16/2025 10:15 AM EDT Office Visit [facility] HEMATOLOGY & ONCOLOGY [address] [address] Rene De Leon MD [address] [address] Health Maintenance Due Date Last Done Comments COLOGUARD 2010 COLON CANCER SCREENING 5 YEAR SIGMOIDOSCOPY 2010 COLONOSCOPY 2010 [address] CANCER SCREENING 2010 CT COLONOGRAPHY 2010 FECAL OCCULT BLOOD TEST 2010 FIT Testing (1 year) 2010 ZOSTER VACCINE (1 of 2) 08/29/2015 TDAP/TD VACCINES (2 - Td or Tdap) 05/11/2021 05/11/2011 ANNUAL PHYSICAL 07/02/2023 HEPATITIS C SCREENING 07/02/2023 INFLUENZA VACCINE 11/14/2024 01/31/2018 Pneumococcal Vaccine 50+ (1 of 1 - PCV) 07/01/2025 Postponed from 08/29/2015 (Patient Refused) LUNG CANCER SCREENING Discontinued 12/13/2024 , 06/10/2024, 09/07/2023, Additional history exists Medical Devices Implanted Type Area Turn Operator Device Identifier Shelf Expiration Date Model / Serial / Lot Reload Stplr Endo Lori Tristaple 2.0 45 Art Maury Faria Crv - [id number] Implanted:Qty: 1 on 10/25/2023 by Maicol Molina MD at [facility] Implant Left: Bronchus COVIDIEN [id number] 01/13/2026 [id number] M / / [id number] Reload Stplr Endo Lori Tristaple 2.0 45 Art Maury Faria Crv - [id number] Implanted:Qty: 4 on 10/25/2023 by Maicol Molina MD at [facility] Implant Left: Bronchus COVIDIEN [id number] 11/13/2026 [id number] M / / [id number] Reload Stplr Endo Loir Tristaple 2.0 45 Art Maury Faria Crv - [id number] Implanted:Qty: 1 on 10/25/2023 by Maicol Molina MD at [facility] Implant Left: Bronchus COVIDIEN [id number] 10/13/2026 [id number] M / / [id number] Cartrdg Stpl Loading Unit For [id number] - [id number] Implanted:Qty: 1 on 10/25/2023 by Maicol Molina MD at [facility] Implant Left: Bronchus COVIDIEN [id number] 09/13/2024 [id number] / / [id number] Stplr [employer] Reloadable Ta30 3.8mm - [id number] Implanted:Qty: 1 on 10/25/2023 by Maicol Molina MD at [facility] Implant Left: Bronchus COVIDIEN [id number] 03/15/2028 [id number] / / [id number] Procedures Procedure Name Priority Date/Time Associated Diagnosis Comments WATCHPAT Routine 01/16/2025 7:[address] ABDOMEN PELVIS W CONTRAST Routine 12/13/2024 9:04 AM EDT Primary adenocarcinoma of upper lobe of left lung CT CHEST W CONTRAST Routine 12/13/2024 9:04 AM EDT Primary adenocarcinoma of upper lobe of left lung from Last 3 Months Results * WATCHPAT (01/16/2025 7:35 AM EDT) [...] was 57. (01/16/25 1308 : Curtis Sim, [facility]) Polysomnography Results Diagnostic Summary TOTAL RECORDING TIME: [...] Supine AHI: 54.4; Non supine AHI: 48.8 us Rachel Avalos MANAGER [facility]ICAL [facility] ORDERABLES Final Result SLEEP MEDICINE * CT Abdomen Pelvis With Contrast (12/13/2024 9:04 AM EDT) Anatomical Region Laterality Modality Abdomen, Pelvis N/A Computed Tomogra phy 12/15/2024 9:38 AM EDT Impressions 12/15/2024 9:48 AM EDT Impression: 1.Post left upper lobectomy. No findings to suggest metastatic disease in the chest, abdomen or pelvis. Electronically Signed: Shelley Mcmanus MD 12/15/2024 9:48 AM EDT Workstation ID: [id number] Narrative 12/15/2024 9:[address] CHEST W CONTRAST DIAGNOSTIC, CT ABDOMEN PELVIS W CONTRAST Date of Exam: 12/13/2024 8:40 AM EDT Indication: lung cancer. Comparison: 06/10/2024. Technique: Axial CT images were obtained of the chest, abdomen and pelvis after the uneventful intravenous administration of iodinated contrast. Reconstructed coronal and sagittal images were also obtained. Automated exposure control and iterative construction methods were used. Findings: Cardiac size is within normal limits. Thoracic aorta is normal in caliber. Visualized thyroid gland is unremarkable. No significant mediastinal, hilar or axillary lymphadenopathy. Calcified mediastinal and right hilar lymph nodes. Managing family family no significant pleural or pericardial fluid. Postsurgical changes of left upper lobectomy. Scattered calcified granulomas in the right lung. No suspicious pulmonary nodule. No focal infiltrate or effusion. Central airways are patent. No pneumothorax. The liver is normal in size and morphology. Mild hepatosteatosis... No focal hepatic lesions are identified. Post cholecystectomy. There is no significant biliary ductal dilatation. The pancreas, spleen and adrenal glands are within normal limits. The kidneys enhance symmetrically. No hydronephrosis. No focal renal lesions. No significant mesenteric or retroperitoneal lymphadenopathy. No ascites. Abdominal aorta is normal in caliber. Few scattered colonic diverticula without evidence of diverticulitis, obstruction, abscess or appendicitis.. Small fat-containing umbilical hernia. Prostate is not enlarged. Small fat-containing inguinal hernias.. The bladder is within normal limits. The rectum is grossly unremarkable. No significant pelvic or inguinal lymphadenopathy.No significant free fluid. No aggressive osseous lesions are identified. Chronic postsurgical deformities of the left upper ribs. Procedure Note Shelley Mcmanus MD - 12/15/2024 CT CHEST W CONTRAST DIAGNOSTIC, CT ABDOMEN PELVIS W CONTRAST Date of Exam: 12/13/2024 8:40 AM EDT Indication: lung cancer. Comparison: 06/10/2024. Technique: Axial CT images were obtained of the chest, abdomen and pelvisafter the uneventful intravenous administration of iodinated contrast.Reconstructed coronal and sagittal images were also obtained. Automatedexposure control and iterative construction methods were used. Findings: Cardiac size is within normal limits. Thoracic aorta is normal in caliber.Visualized thyroid gland is unremarkable. No significant mediastinal, hilar or axillary lymphadenopathy. Calcifiedmediastinal and right hilar lymph nodes. Managing family family nosignificant pleural or pericardial fluid. Postsurgical changes of left upper lobectomy. Scattered calcifiedgranulomas in the right lung. No suspicious pulmonary nodule. No focalinfiltrate or effusion. Central airways are patent. No pneumothorax. The liver is normal in size and morphology. Mild hepatosteatosis... Nofocal hepatic lesions are identified. Post cholecystectomy. There is no significant biliary ductal dilatation. The pancreas, spleen and adrenal glands are within normal limits. The kidneys enhance symmetrically. No hydronephrosis. No focal renallesions. No significant mesenteric or retroperitoneal lymphadenopathy. No ascites.Abdominal aorta is normal in caliber. Few scattered colonic diverticula without evidence of diverticulitis,obstruction, abscess or appendicitis.. Small fat-containing umbilicalhernia. Prostate is not enlarged. Small fat-containing inguinal hernias.. Thebladder is within normal limits. The rectum is grossly unremarkable. Nosignificant pelvic or inguinal lymphadenopathy.No significant freefluid. No aggressive osseous lesions are identified. Chronic postsurgicaldeformities of the left upper ribs. IMPRESSION: Impression: 1.Post left upper lobectomy. No findings to suggest metastatic disease inthe chest, abdomen or pelvis. Electronically Signed: Shelley Mcmanus MD 12/15/2024 9:48 AM EDT Workstation ID: [id number] Rene De Leon MD IMG CT ORDERABLES Final R esult * CT Chest With Contrast Diagnostic (12/13/2024 9:04 AM EDT) Anatomical Region Laterality Modality Chest N/A Computed Tomogra phy 12/15/2024 9:38 AM EDT Impressions 12/15/2024 9:48 AM EDT Impression: 1.Post left upper lobectomy. No findings to suggest metastatic disease in the chest, abdomen or pelvis. Electronically Signed: Shelley Mcmanus MD 12/15/2024 9:48 AM EDT Workstation ID: [id number] Narrative 12/15/2024 9:[address] CHEST W CONTRAST DIAGNOSTIC, CT ABDOMEN PELVIS W CONTRAST Date of Exam: 12/13/2024 8:40 AM EDT Indication: lung cancer. Comparison: 06/10/2024. Technique: Axial CT images were obtained of the chest, abdomen and pelvis after the uneventful intravenous administration of iodinated contrast. Reconstructed coronal and sagittal images were also obtained. Automated exposure control and iterative construction methods were used. Findings: Cardiac size is within normal limits. Thoracic aorta is normal in caliber. Visualized thyroid gland is unremarkable. No significant mediastinal, hilar or axillary lymphadenopathy. Calcified mediastinal and right hilar lymph nodes. Managing family family no significant pleural or pericardial fluid. Postsurgical changes of left upper lobectomy. Scattered calcified granulomas in the right lung. No suspicious pulmonary nodule. No focal infiltrate or effusion. Central airways are patent. No pneumothorax. The liver is normal in size and morphology. Mild hepatosteatosis... No focal hepatic lesions are identified. Post cholecystectomy. There is no significant biliary ductal dilatation. The pancreas, spleen and adrenal glands are within normal limits. The kidneys enhance symmetrically. No hydronephrosis. No focal renal lesions. No significant mesenteric or retroperitoneal lymphadenopathy. No ascites. Abdominal aorta is normal in caliber. Few scattered colonic diverticula without evidence of diverticulitis, obstruction, abscess or appendicitis.. Small fat-containing umbilical hernia. Prostate is not enlarged. Small fat-containing inguinal hernias.. The bladder is within normal limits. The rectum is grossly unremarkable. No significant pelvic or inguinal lymphadenopathy.No significant free fluid. No aggressive osseous lesions are identified. Chronic postsurgical deformities of the left upper ribs. Procedure Note Shelley Mcmanus MD - 12/15/2024 CT CHEST W CONTRAST DIAGNOSTIC, CT ABDOMEN PELVIS W CONTRAST Date of Exam: 12/13/2024 8:40 AM EDT Indication: lung cancer. Comparison: 06/10/2024. Technique: Axial CT images were obtained of the chest, abdomen and pelvisafter the uneventful intravenous administration of iodinated contrast.Reconstructed coronal and sagittal images were also obtained. Automatedexposure control and iterative construction methods were used. Findings: Cardiac size is within normal limits. Thoracic aorta is normal in caliber.Visualized thyroid gland is unremarkable. No significant mediastinal, hilar or axillary lymphadenopathy. Calcifiedmediastinal and right hilar lymph nodes. Managing family family nosignificant pleural or pericardial fluid. Postsurgical changes of left upper lobectomy. Scattered calcifiedgranulomas in the right lung. No suspicious pulmonary nodule. No focalinfiltrate or effusion. Central airways are patent. No pneumothorax. The liver is normal in size and morphology. Mild hepatosteatosis... Nofocal hepatic lesions are identified. Post cholecystectomy. There is no significant biliary ductal dilatation. The pancreas, spleen and adrenal glands are within normal limits. The kidneys enhance symmetrically. No hydronephrosis. No focal renallesions. No significant mesenteric or retroperitoneal lymphadenopathy. No ascites.Abdominal aorta is normal in caliber. Few scattered colonic diverticula without evidence of diverticulitis,obstruction, abscess or appendicitis.. Small fat-containing umbilicalhernia. Prostate is not enlarged. Small fat-containing inguinal hernias.. Thebladder is within normal limits. The rectum is grossly unremarkable. Nosignificant pelvic or inguinal lymphadenopathy.No significant freefluid. No aggressive osseous lesions are identified. Chronic postsurgicaldeformities of the left upper ribs. IMPRESSION: Impression: 1.Post left upper lobectomy. No findings to suggest metastatic disease inthe chest, abdomen or pelvis. Electronically Signed: Shelley Mcmanus MD 12/15/2024 9:48 AM EDT Workstation ID: [id number] us Rene De Leon MD IMG CT ORDERABLES Final R esult from Last 3 Months [facility] Advance Directives * CPR (Attempt to Resuscitate) (Latest Code Status on File) Date Activated Date Inactivated Comments 10/25/2023 9:13 AM 10/30/2023 3:23 PM Question Answer Comments Code Status (Patient has no pulse and is not breathing): CPR (Attempt to Resuscitate) Medical Interventions (Patie nt has pulse or is breathing): Full Support Care Teams Tower Air Traffic Control Specialist Relationship Specialty Start Date End Date Xiang Chong MD [address] [place] [phone] PCP - General Family Medicine 07/02/23
[2025-03-10 09:14] LABS: Hematocrit 48.9 % (42.0-52.0); Hemoglobin 16.1 g/dL (14.1-18.0); Immature Granulocytes % 0.4 %; Mean Corpuscular HGB Conc 32.9 g/dL (31.8-35.4); Mean Corpuscular Hemoglobin 29.2 pg (27.0-31.2); Mean Corpuscular Volume 88.7 fl (80-94); Nucleated Red Blood Cells % 0 %; Platelet Count 259 K/mm3 (142-424); Red Blood Count 5.51 M/mm3 (4.60-6.20); Red Cell Distribution Width-SD 43.8 fL; White Blood Count 7.8 K/mm3 (4.8-10.8)
== END 2025-03-10 23:59 | disposition home or self-care (01) ==
LOC: LAB 08:53
PROVIDERS: PCP Family Medicine; Visit Provider Family Medicine
DX: A05.9 Bacterial foodborne intoxication, unspecified (principal)
CPT/HCPCS: 36415; 85025; 87040